=== PATIENT | male | born 1990 | race Hispanic/Latino ===

== ENCOUNTER 2024-03-01 19:11 | Emergency (ER) | payer OTHER ==
[~2024-03-01] VITALS: Ht 182.9 cm; Wt 83.9 kg
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
[2024-03-01] MEDS: ibuPROFEN 800 MG TAB PO ONE (20:07)
--- NOTE | 2024-03-01 20:22 | HMCIMG ---
ANKLE COMP 3VWS RT INDICATION: Ankle pain after twisting it this afternoon at work TECHNIQUE: ANKLE COMP 3VWS RT. FINDINGS/IMPRESSION: No displaced fracture or dislocation is seen. Correlate clinically. There is mild soft tissue swelling No radiopaque foreign body is identified.
--- NOTE | 2024-03-01 20:42 | NUR ---
PT PLACED IN ANKLE SPLINT AT THIS TIME
[2024-03-01] MEDS ORDERED: IBUP-2077 PO (20:43)
[2024-03-01 20:53] VITALS: TEMP 97.9
[2024-03-01 20:55] VITALS: BP 134/73; PULSE 98; RESP 17; O2SAT 100
== END 2024-03-01 20:55 | disposition home or self-care (01) ==
LOC: EDH 19:11
DX: S93.401A Sprain of unspecified ligament of right ankle, initial encounter (principal); X50.1XXA Overexertion from prolonged static or awkward postures, initial encounter; Y93.89 Activity, other specified; Y92.89 Other specified places as the place of occurrence of the external cause; Y99.8 Other external cause status
CPT/HCPCS: 29515; 73610; 99283